=== PATIENT | female | born 1960 | race Caucasian/White ===

== ENCOUNTER 2020-06-20 07:22 | Outpatient (CLI) | payer OTHER, SELFPAY ==
--- NOTE | ~2020-06-20 | MM_ITS ---
EXAMINATION: MM screening mami BI w sg HISTORY: Screening TECHNIQUE: Craniocaudal and mediolateral oblique 3-D tomosynthesis images were obtained and synthetic 2-D images were generated. CAD analysis was submitted and interpreted. COMPARISON: Comparison to multiple prior studies sequentially, with oldest reviewed study dated 02/15. BREAST PARENCHYMAL COMPOSITION: The breasts are heterogeneously dense, which may obscure small masses . FINDINGS: There is no evidence of suspicious mass, calcification, or architectural distortion to sugg est malignancy in either breast. There has been no suspicious interval change. IMPRESSION: 1. No mammographic evidence of malignancy. 2. Recommend routine screening mammography in one year. BI-RADS Category 1: Negative Reviewed, dictated and finalized at location A.
== END 2020-06-20 07:23 | disposition home or self-care (01) ==
LOC: ANHIMG 07:25
PROVIDERS: PCP Internal Medicine; Visit Provider Obstetrics & Gynecology Gynecology
DX: Z12.31 Encounter for screening mammogram for malignant neoplasm of breast (principal)
CPT/HCPCS: 77063; 77067

== ENCOUNTER 2021-09-12 07:49 | Outpatient (CLI) | payer OTHER, SELFPAY ==
--- NOTE | ~2021-09-12 | MM_ITS ---
EXAMINATION: MM screening mami BI w sg HISTORY: Screening mammogram, family history of breast cancer in her mother. TECHNIQUE: Craniocaudal and mediolateral oblique 3-D tomosynthesis images were obtained and synthetic 2-D images were generated. CAD analysis was submitted and interpreted. COMPARISON: 06/20/2020, 02/19/2019, 02/04/2019 BREAST PARENCHYMAL COMPOSITION: The breasts are heterogeneously dense, which may obscure small masses . FINDINGS: There is no evidence of suspicious mass, calcification, or architectural distortion to sugg est malignancy in either breast. There has been no suspicious interval change. IMPRESSION: 1. No mammographic evidence of malignancy. 2. Recommend routine screening mammography in one year. BI-RADS Category 1: Negative Reviewed, dictated and finalized at location A. MIX OPERATOR
--- NOTE | ~2021-09-12 | DEXA_ITS ---
Bone Density Report Name: Ade Patrick Age: 61 Sex: Female Ethnicity: White Date of : 1960 Indication: osteopenia; monitoring treatment; postmenopausal Referring Provider: ANNMARIE RUIZ Study: Bone densitometry was performed. Exam Date: September 12, 2021 Accession number: [id number] Bone Density: Region BMD T-score Z-score Classification AP Spine (L1-L4) 0.778 -2.4 -0.8 Osteopenia Femoral Neck (Left) 0.625 -2.0 -0.6 Osteopenia Total Hip (Left) 0.760 -1.5 -0.4 Osteopenia Total Hip Bilateral Avg 0.755 -1.6 -0.4 Osteopenia Femoral Neck (Right) 0.579 -2.4 -1.0 Osteopenia Total Hip (Right) 0.750 -1.6 -0.4 Osteopenia World Health Organization criteria for BMD impression classify patients as: Normal (T-score at or above -1.0), Osteopenia (T-score between -1.0 and -2.5), or Osteoporosis (T-score at or below -2.5). 10-year Fracture Risk: FRAX not reported because: Treated for osteoporosis Previous Exams: Region Exam Age BMD T-score BMD Change BMD Change Date g/cm2 vs Baseline vs Previous AP Spine(L1-L4) 09/12/2021 61 0.778 -2.4 -0.048(-5.8%)# -0.029(-3.6%)* 02/04/2019 58 0.807 -2.2 -0.019(-2.3%)# 0.005(0.7%) 08/23/2016 56 0.802 -2.2 -0.024(-2.9%)# -0.011(-1.4%)# 02/15/2014 53 0.813 -2.1 -0.013(-1.6%) -0.013(-1.6%) 02/08/2012 51 0.826 -2.0 Total Hip(Left) 09/12/2021 61 0.760 -1.5 -0.064(-7.8%)# -0.033(-4.1%)* 02/04/2019 58 0.793 -1.2 -0.031(-3.8%)# 0.015(1.9%) 08/23/2016 56 0.778 -1.3 -0.046(-5.6%)# -0.033(-4.0%)# 02/15/2014 53 0.811 -1.1 -0.013(-1.6%) -0.013(-1.6%) 02/08/2012 51 0.824 -1.0 Total Hip(Right) 09/12/2021 61 0.750 -1.6 -0.031(-3.9%)# 0.008(1.1%) 02/04/2019 58 0.742 -1.6 -0.039(-5.0%)# -0.009(-1.2%) 08/23/2016 56 0.751 -1.6 -0.030(-3.8%)# -0.008(-1.1%)# 02/15/2014 53 0.760 -1.5 -0.021(-2.7%) -0.021(-2.7%) 02/08/2012 51 0.781 -1.3 *Denotes significance at 95% confidence level, LSC for AP Spine = 0.022 g/cm2, LSC for Total Hip = 0.027 g/cm2 Clinical Information Provided by Patient: Is being treated for osteoporosis Has used the following medications: Reclast (i.e. zoledronate), Vitamin D, Calcium Patient maximum height was 64 Menopause Age: 48 No regular weight bearing exercise Does not regularly consume dairy products Onset of menses at age 10 Number of children 2 Impression: The patient has low bone mass, based on the Total
== END 2021-09-12 07:50 | disposition home or self-care (01) ==
LOC: ANHIMG 07:51
PROVIDERS: PCP Internal Medicine; Visit Provider Obstetrics & Gynecology Gynecology
DX: Z12.31 Encounter for screening mammogram for malignant neoplasm of breast (principal); Z78.0 Asymptomatic menopausal state; M85.88 Other specified disorders of bone density and structure, other site; M85.852 Other specified disorders of bone density and structure, left thigh; M85.851 Other specified disorders of bone density and structure, right thigh
CPT/HCPCS: 77063; 77067; 77080

== ENCOUNTER 2022-11-01 08:36 | Outpatient (CLI) | payer OTHER, SELFPAY ==
--- NOTE | ~2022-11-01 | MM_ITS ---
EXAMINATION: MM screening mami BI w sg HISTORY: Screening TECHNIQUE: Craniocaudal and mediolateral oblique 3-D tomosynthesis images were obtained and synthetic 2-D images were generated. CAD analysis was submitted and interpreted. COMPARISON: Comparison to multiple prior studies sequentially, with oldest reviewed study dated 12/2015. BREAST PARENCHYMAL COMPOSITION: The breasts are heterogeneously dense, which may obscure small masses . FINDINGS: There is no evidence of suspicious mass, calcification, or architectural distortion to sugg est malignancy in either breast. There has been no suspicious interval change. IMPRESSION: 1. No mammographic evidence of malignancy. 2. Recommend routine screening mammography in one year. BI-RADS Category 1: Negative Reviewed, dictated and finalized at location A. TENANCE MANAGER
== END 2022-11-01 08:37 | disposition home or self-care (01) ==
PROVIDERS: PCP Internal Medicine; Visit Provider Obstetrics & Gynecology Gynecology
DX: Z12.31 Encounter for screening mammogram for malignant neoplasm of breast (principal)
CPT/HCPCS: 77063; 77067

== ENCOUNTER 2024-04-24 08:09 | Outpatient (CLI) | payer OTHER, SELFPAY ==
--- NOTE | ~2024-04-24 | MM_ITS ---
EXAMINATION: MM screening mami BI w sg HISTORY: Screening mammogram, family history of breast cancer in her mother. TECHNIQUE: Craniocaudal and mediolateral oblique 3-D tomosynthesis images were obtained and synthetic 2-D images were generated. CAD analysis was submitted and interpreted. COMPARISON: 11/01/2022, 09/12/2021, 06/20/2020 BREAST PARENCHYMAL COMPOSITION:Dense: The breasts are heterogeneously dense, which may obscure small masses. FINDINGS: No suspicious mass, calcification, or architectural distortion are identified in either lavon ast to suggest malignancy. There has been no suspicious interval change. IMPRESSION: No mammographic evidence of malignancy. Recommend routine screening mammography in one year. BI-RADS Category 1: Negative Reviewed, dictated and finalized at location .
--- NOTE | ~2024-04-24 | DEXA_ITS ---
Bone Density Report Name: BRITTANI GERBER Age: 64 Sex: Female Ethnicity: White Date of : 1960 Indication: osteopenia; monitoring treatment; height loss; Referring Provider: ANNMARIE RUIZ Study: Bone densitometry was performed. Exam Date: April 24, 2024 Accession number: [id number] Bone Density: Region BMD T-score Z-score Classification AP Spine(L1-L4) 0.799 -2.3 -0.4 Osteopenia Femoral Neck (Left) 0.636 -1.9 -0.4 Osteopenia Total Hip (Left) 0.797 -1.2 0.1 Osteopenia Femoral Neck (Right) 0.590 -2.3 -0.8 Osteopenia Total Hip (Right) 0.737 -1.7 -0.4 Osteopenia Total Hip Mean 0.767 -1.5 -0.2 Osteopenia World Health Organization criteria for BMD impression classify patients as: Normal (T-score at or above -1.0), Osteopenia (T-score between -1.0 and -2.5), or Osteoporosis (T-score at or below -2.5). 10-year Fracture Risk: FRAX not reported because: Treated for osteoporosis Previous Exams: Region Exam Age BMD T-score BMD Change BMD Change Date g/cm2 vs Baseline vs Previous AP Spine (L1-L4) 04/24/2024 64 0.799 -2.3 -0.015 (-1.8%) 0.020 (2.6%) 09/12/2021 61 0.778 -2.4 -0.035 (-4.3%) -0.029 (-3.6%) 02/04/2019 58 0.807 -2.2 -0.006 (-0.8%) 0.005 (0.7%) 08/23/2016 56 0.802 -2.2 -0.011 (-1.4%) -0.011 (-1.4%) 02/15/2014 53 0.813 -2.1 Total Hip(Left) 04/24/2024 64 0.797 -1.2 -0.014 (-1.8%) 0.037 (4.8%)* 09/12/2021 61 0.760 -1.5 -0.051 (-6.3%) -0.033 (-4.1%) 02/04/2019 58 0.793 -1.2 -0.018 (-2.2%) 0.015 (1.9%) 08/23/2016 56 0.778 -1.3 -0.033 (-4.0%) -0.033 (-4.0%) 02/15/2014 53 0.811 -1.1 Total Hip(Right) 04/24/2024 64 0.737 -1.7 -0.022 (-2.9%) -0.013 (-1.7%) 09/12/2021 61 0.750 -1.6 -0.009 (-1.2%) 0.008 (1.1%) 02/04/2019 58 0.742 -1.6 -0.018 (-2.3%) -0.009 (-1.2%) 08/23/2016 56 0.751 -1.6 -0.008 (-1.1%) -0.008 (-1.1%) 02/15/2014 53 0.760 -1.5 *Denotes significance at 95% confidence level, LSC for AP Spine = 0.022 g/cm2, LSC for Total Hip = 0.027 g/cm2 # Denotes dissimilar scan types or analysis methods Clinical Information Provided by Patient: Is being treated for osteoporosis Has used the following medications: Boniva (i.e. ibandronate), Vitamin D, Calcium Patient maximum height was 64 Menopause Age: 48 No regular weight bearing exercise Does not regularly consume dairy products Onset of menses at age 13 Number of children 2
== END 2024-04-24 08:10 | disposition home or self-care (01) ==
LOC: ANHIMG 08:15
PROVIDERS: PCP Physician Assistant Medical; Visit Provider Obstetrics & Gynecology Gynecology
DX: Z12.31 Encounter for screening mammogram for malignant neoplasm of breast (principal); M85.89 Other specified disorders of bone density and structure, multiple sites; Z78.0 Asymptomatic menopausal state
CPT/HCPCS: 77063; 77067; 77080

== ENCOUNTER 2024-05-04 12:17 | Outpatient (CLI) | payer OTHER, SELFPAY ==
--- NOTE | ~2024-05-04 | XR_ITS ---
XR abdomen/kub 1V Ordering provider: Quan Childress MD History: . LT URETERAL STONE . Comparison: None. FINDINGS: BOWEL: Nonobstructive bowel gas pattern. ORGANOMEGALY: None. SIGNIFICANT PATHOLOGIC CALCIFICATIONS: Calcific shadow seen in the left side of the pelvis which may be a stone or phlebolith. Follow-up advised. OTHER: No free air is seen under the diaphragm. Sclerotic areas in the left iliac bone. Follow-up advised. IMPRESSION: Calcific shadow seen in the left side of the pelvis which may be a stone or phlebolith. Follow-up adv ised. Reviewed, dictated and finalized at location A. IMPRESSION: Calcific shadow seen in the left side of the pelvis which may be a stone or phl ebolith. Follow-up advised.
== END 2024-05-04 12:18 | disposition home or self-care (01) ==
LOC: ANHIMG 12:20
PROVIDERS: PCP Physician Assistant Medical; Visit Provider Urology
DX: N20.1 Calculus of ureter (principal)
CPT/HCPCS: 74018

== ENCOUNTER 2024-05-07 01:41 | Day surgery (SDC) | payer OTHER, SELFPAY ==
--- NOTE | 2024-05-05 14:24 | PC.NURSE ---
Report to the Outpatient Waiting Room, entrance under the green pavilion located off [facility], at time __10:30 AM on date __05/07/24 . Planned Procedure Time: _12:30 PM . Time changes happen often and if your time is changed the preop area will call you the afternoon before. - You and your visitor will be asked to self-screen and do not enter if you have any COVID symptoms. - A mask is optional within the hospital at this time. Patients may have clear liquids (water, carbonated beverages, clear teas, apple juice) until 3 hours prior to surgery(9:30 AM) with a maximum of 20 ounces. - No food from midnight until time of surgery - Infants may have breast milk until 4 hours before surgery, infant formula 6 hours prior to surgery. - Children will be allowed to drink immediately following surgery. If applicable, please bring a bottle or sippy cup to assist with drinking. Juice, water, soda, and popsicles are readily available. For infants on formula, please bring formula the day of surgery. Pacifiers are allowed. Take the following medications with a SIP of water the morning of surgery: __HYDROCODONE IF NEEDED FOR PAIN. CIPRO DO NOT STOP ANY OF YOUR OTHER PRESCRIPTION MEDICATIONS PRIOR TO SURGERY ?EXCEPT THE FOLLOWING Medications to discontinue per physician __HOLD ALL VITAMINS 3 DAYS PRE OP.PT STATES LAST DOSE 2 WKS AGO Please no make-up, nail hungarian, hairspray, perfume, deodorant, or body powder the day of surgery. No jewelry (including any body piercings) or valuables the day of surgery, leave them at home. Please take a shower or bath the night before, or the morning of, surgery with an antibacterial soap. Wear comfortable, loose fitting clothing. Children are encouraged to wear pajamas. - Jewelry must be removed prior to entering the operating room. Rings and piercings that are not removed may be cut off. - The hospital will not accept responsibility for valuables. - Please leave all valuables, including medications, at home the day of surgery. If you are going home after surgery, a licensed coach tour driver must drive you home. - NO public transportation without another adult if you receive anesthesia. - We recommend that an adult stay with you for 24 hours following discharge. - We also recommend that you do not drive, make important decision, drink alcoholic beverages, or take any drugs that were not prescribed by your health care provider for at least 24 hours after your discharge time. Follow any additional instructions given to you from your surgeon. If you or anyone in your household have experienced Covid symptoms in the past week, please notify your surgeon or the nurse liaison at the phone number below for possible testing. Telephone instructions given to __PATIENT and asked if any additional questions and then verbalized understanding. Patient advised to call surgeon office or pre surgery nurse liaison [phone] if any additional questions.
[2024-05-05 14:29] VITALS: BMI 24.0
[2024-05-07] VITALS (8 sets, daily range): BP systolic 117–145; BP diastolic 65–77; PULSE 66–92; RESP 10–16; TEMP 36.6–36.9; O2SAT 98–100; BMI 23.1
--- NOTE | ~2024-05-07 | XR_ITS ---
EXAMINATION: XR stent kub - surgery DATE: 05/07/2024 12:27 INDICATION: Left internal ureteral stent placement TECHNIQUE: Fluoroscopic images from a left stent placement are submitted for review. 14 seconds of fl uoroscopy time. 4 fluoroscopic images FINDINGS: There is a left double-J internal ureteral stent projecting in expected position, with proximal [place] loop at the level of the renal pelvis and distal loop in the pelvis within the bladder lumen. IMPRESSION: 1. Left internal ureteral stent placement. Please refer to real-time procedural findings for detail s. Reviewed, dictated and finalized at location B. IMPRESSION: 1. Left internal ureteral stent placement. Please refer to real-time procedur al findings for details.
--- NOTE | 2024-05-07 06:31 | WPDHPUPDATE1 ---
History and Physical Update Update Date/Time: 05/07/24 06:31 History and Physical has been reviewed, including an updated exam of the patient. There are NO changes in the patient's condition. Risks, benefits, and alternatives have been discussed and questions answered. Patient agrees to proceed with procedure.
[2024-05-07] MEDS: LACTATED RINGERS 1,000 ML 30 ML IV CONT (11:15)
--- NOTE | 2024-05-07 11:24 | WPDANESEPPF ---
Anes - Initial Pre Proc Eval Procedure: Operation Date: 05/07/24 12:30 Proposed Procedures p Cystoscopy, Left Ureteroscopy, Possible Holmium Laser Lithotripsy, Left Stent Extraction, Left Stent Placement - Quan Childress MD Date/Time: 05/07/24 11:24 Surgeon: Quan Childress MD Pre Op Diagnosis: Lt Ureteral Stone Patient Data Age: 64 Gender: F Height: 1.63 m Weight: 63.6 kg Allergies Allergy/AdvReac Type Severity Reaction Status Date / Time No Known Allergies Allergy Unverified 05/05/24 14:13 Home Medications Medication Instructions Recorded Confirmed Type cholecalciferol (vitamin D3) 1,250 1,250 mcg PO WEEKLY 04/19/23 05/05/24 History mcg (50,000 unit) capsule hydrocodone 5 mg-acetaminophen 325 1 tablet PO Q8H PRN pain #30 tabs 05/01/24 05/05/24 Rx mg tablet ciprofloxacin HCl 500 mg tablet 500 mg PO Q12H KIDNEY INFECTION 05/05/24 05/05/24 History (Cipro) Patient hx anesthesia problems: other (Pt reports that 40 years ago she woke up w ETT still in her mouth on emergence.) Family hx anesthesia problems: none Results Review: All pre-operative results and documents have been reviewed as part of the pre-operative evaluation. [facility] Past Medical History Medical History Hyperlipidemia Kidney stone Osteoporosis UTI (urinary tract infection) Surgical History Surgical History H/O colonoscopy H/O oophorectomy History of appendectomy Hx of tubal ligation Family History Family History Mother Non Hodgkin's lymphoma Social History Social History Smoking status: Never smoker Second hand tobacco smoke exposure: Yes Alcohol intake: current Alcohol use details: rare, yearly Substance use: never Substance use type: does not use Lack of Transportation: No Lack of Food: Never True Current Housing: I Have Housing Concerned About Future Housing: No Difficulty Paying Gas/Electric Bills: No Difficulty Paying for Meds: No Currently Unemployed: No Education: High School Diploma/GED Difficulty w/ Childcare or Family Care: No Living arrangements: with family Additional living arrangements comments: spouse Occupation/Education: retired Gender identity (if verbalized by the patient): Female Sexual Orientation (if Verbalized by the Patient): Straight or Heterosexual Spiritual care concerns: No Anes - Eval Final PreProcedure Day of Procedure 05/07/24 11:24 Patient weight: normal Heart: regular rate and rhythm Lungs: clear to auscultation Airway: Mallampati scale class II Neurological: alert and oriented Last oral intake: >/= 8 hours ASA classification: II Emergent: no Anesthetic plan: proceed Anesthesia type and monitoring: general LMA and standard monitoring Results Review: All pre-operative results and documents have been reviewed as part of the pre-operative evaluation. Hyperlipidemia, diet controlled. Informed Consent: The patient's anesthetic plan and its attendant risks and benefits were discussed with the patient/family/POA. Questions were solicited and answers provided to the satisfaction of the patient/family/POA.
[2024-05-07] MEDS: ceFAZolin 2 GM/D5W 50 ML 2 GM/50 ML BAG IVPB (11:47)
[2024-05-07] MEDS: LIDOCAINE HCL 2% GEL UROJET 10 ML PKG MUCOUS MEM (11:56)
[2024-05-07] MEDS: KETOROLAC 15 MG/ML VIAL (*BKC) IV PUSH (12:19)
--- NOTE | 2024-05-07 12:29 | P.OP_ITS ---
Procedure Note - Detailed Date of Procedure 05/07/24 Pre-op Diagnosis Lt Ureteral Stone Post-op Diagnosis Same Procedure Performed Cystoscopy, left ureteroscopy with laser lithotripsy stone extraction, stent placement Surgeon Quan Childress MD Anesthesia General Description of Procedure The patient was brought to the operative suite where she is prepped and draped in a routine sterile fashion while in the dorsal lithotomy position after the uneventful induction of a general LMA anesthetic. A 19F rigid cystoscope was placed in the bladder. The patient had no evidence of urethral stricture or bladder neck contracture. The bladder mucosa was endoscopically normal without hyperemia or neoplasm. There was a single, orthotopic ureteral orifice bilaterally. A 0.035 glidewire was advanced into the left renal pelvis under fluoroscopy. The distal ureter was dilated with an 8F/10F ureteral dilator. Ureteroscopy was undertaken with a short tapered semi-rigid ureteroscope. She has a 6mm stone which was impacted 2cm above the ureteral orifice. I used a 200 micron [employer] laser fiber to fracture at/ dusted into multiple small pieces, all of which were removed with a 1 point F disposable escape stone basket. Due to the extent of this manipulation I did place a 4.8F double-J ureteral stent. I performed a retrograde pyelogram through the ureteral scope to ensure appropriate placement of the stent. The proximal coil of the stent was confirmed to be in the renal pelvis and the distal coil in the bladder. The patient's bladder was emptied and she was taken to the recovery room having tolerated this procedure well. Drains Yes Packing Yes Pathology Yes Complications No immediate complications Condition Stable
== END 2024-05-07 13:53 | disposition home or self-care (01) ==
PROVIDERS: PCP Physician Assistant Medical; Visit Provider Urology
PROC: (CPT 52352; principal; 2024-05-07 12:30)
DX: N20.1 Calculus of ureter (principal)
CPT/HCPCS: 52356; 82365; 88300; C1769; C2617; J0690; J1885; J2371; J2405; J2704; J3010; J7120

== ENCOUNTER 2024-12-14 08:02 | Outpatient (CLI) | payer OTHER, SELFPAY ==
--- NOTE | ~2024-12-14 | XR_ITS ---
Exam: Abdomen 1V HISTORY: Lt ureteral stone, follow-up COMPARISON: 05/04/2024 TECHNIQUE: Supine images of the abdomen FINDINGS: Bowel gas pattern is non-obstructive. There is no free air or deep sulci. Redemonstration of a well-circumscribed 3 mm calcific density in the left hemipelvis, unchanged from prior. Lung bases are unremarkable. Bones and soft tissues are unremarkable. IMPRESSION: Nonspecific, nonobstructive bowel gas pattern. 3 mm calcific density within the left hemipelvis, unchanged from prior. Reviewed, dictated and finalized at location A. NICAL SOLUTIONS DIRECTOR
--- OUTSIDE RECORDS SUMMARY | 2024-12-14 08:17 | XMS_ITS | Clinical Summary ---
Author Organization [facility] Address [address] [place] [address] Care Team Providers Care Home Specialist Name Role Phone Brown Holden MD Primary Care Provider [phone] Source Comments [facility],non-owned Affiliates and Associated Physician Practices is amultiple site organization consisting of ambulatory clinics and hospital sitesin [place], [place], [place] and [place]. This disclosure is being madepursuant to the Care Everywhere program and may not contain all information available regarding this patient. Last updated 18.[facility] Allergies No known active allergies Medications * Be aware that medications may not be up to date on this document. Alwaysverify current medications with the patient. Medication Sig Dispensed Refills Start Date End Date Status diazePAM (VALIUM) 2 MG tablet Take 1 tablet by mouth 3 times daily as needed (back spasm) 10 tablet 08/07/2019 Active ibuprofen (MOTRIN) 200 MG tablet Take 2 tablets by mouth every 6 hours as needed for Pain 08/07/2019 Active oxyCODONE-acetaminoph en (PERCOCET) 5-325 MG tablet Take 1 tablet by mouth every 4 hours as needed for Pain 12 tablet 08/07/2019 Active artificial tears ophthalmic ointment Instill into left eye 4 times daily - before meals & nightly 1 g 08/07/2019 Active Social History Tobacco Use Types Packs/Day Years Used Date Smoking Tobacco: Never Assessed Sex and Gender Information Value Date Recorded Sex Assigned at Not on file Gender Identity Not on file Sexual Orientation Not on file Last Filed Vital Signs Vital Sign Reading Time Taken Comments Blood Pressure 163/80 08/07/2019 1:00 AM CDT Pulse 74 08/07/2019 1:00 AM CDT Temperature 36.1 C (97 F) 08/06/2019 3:57 PM CDT Respiratory Rate 11 08/07/2019 1:00 AM CDT Oxygen Saturation 100% 08/07/2019 1:00 AM CDT Inhaled Oxygen Concentration - - Weight 63.5 kg (140 lb) 08/06/2019 8:05 PM CDT Height 162.6 cm (5' 4 ) 08/06/2019 8:05 PM CDT Body Mass Index 24.03 08/06/2019 8:05 PM CDT Plan of Treatment Health Maintenance Due Date Last Done Comments BONE DENSITY TESTING 1960 COLOGUARD (AGES 45-75) - COL ON CA SCREENING 1960 COLON MONITORING 1960 COLONOSCOPY - COLON CA SCREENING 1960 CT COLONOGRAPHY - COLON CA SCREENING 1960 Colorectal Cancer Screening 1960 FIT - COLON CA SCREENING 1960 FLEX SIG - COLON CA SCREENING 1960 LIPID TESTING 1960 MAMMOGRAM 1960 HEPATITIS C SCREENING 02/17/1976 DTAP/TDAP/TD VACCINES (1 - Tdap) 1977 PNEUMOCOCCAL VACCINE 50+ (1 of 1 - PCV) 02/22/2008 ZOSTER VACCINE (1 of 2) 02/22/2008 COVID-19 VACCINE (1 - 2023-2 5 season) 2024 INFLUENZA VACCINE (#1) 2024 DEPRESSION SCREENING 10/21/2024 MEDICARE AWV CALENDAR YEAR 2024 Respiratory Syncytial Virus (RSV) Vaccine Pt: or over 60 yrs (1 - 1-dose 75+ series) 2033 HEPATITIS B VACCINE Aged Out No longe r eligible based on patient's age to complete this topic HIB VACCINE Aged Out No longer eligi ble based on patient's age to complete this topic HPV VACCINE Aged Out No longer eligi ble based on patient's age to complete this topic MENINGOCOCCAL (Group B) VACCINE Aged Out No longer eligible based on patient's age to complete this topic MENINGOCOCCAL VACCINE Aged Out No faby georgi eligible based on patient's age to complete this topic Care Teams Home Specialist Relationship Specialty Start Date End Date Brown Holden MD [facility] [place], [place] [id number] PCP - General Internal Medicine 08/06/19
--- OUTSIDE RECORDS SUMMARY | 2024-12-14 08:17 | XMS_ITS | Patient Health Summary ---
Author Organization [facility] Address [address] [place] [address] Care Team Providers Care Asphalt Worker Name Role Phone Brown Holden MD Primary Care Provider [phone] Note from [facility],non-owned Affiliates and Associated Physician Practices is amultiple site organization consisting of ambulatory clinics and hospital sitesin [place], [place], [place] and [place]. This disclosure is being madepursuant to the Care Everywhere program and may not contain all information available regarding this patient. Last updated 18.[facility] Allergies No known active allergies Medications * Be aware that medications may not be up to date on this document. Alwaysverify current medications with the patient. * diazePAM (VALIUM) 2 MG tablet(Started 08/07/2019) Take 1 tablet by mouth 3 times daily as needed (back spasm) * ibuprofen (MOTRIN) 200 MG tablet(Started 08/07/2019) Take 2 tablets by mouth every 6 hours as needed for Pain * oxyCODONE-acetaminophen (PERCOCET) 5-325 MG tablet(Started 08/07/2019) Take 1 tablet by mouth every 4 hours as needed for Pain * artificial tears ophthalmic ointment(Started 08/07/2019) Instill into left eye 4 times daily - before meals & nightly Social History Tobacco Use Types Packs/Day Years [...] Mass Index 24.03 08/06/2019 8:05 PM CDT Procedures * CARDIAC EKG ORDER(Performed 09/07/2019) * CARDIAC EKG ORDER(Performed 08/07/2019) * TROPONIN I(Performed 08/06/2019) * MRI BRAIN WO CONTRAST(Performed 08/06/2019) Performed for Facial droop * TROPONIN I(Performed 08/06/2019) * TROPONIN I(Performed 08/06/2019) * PT-INR [facility](Performed 08/06/2019) * COMPREHENSIVE METABOLIC PANEL(Performed 08/06/2019) * CBC W AUTO DIFFERENTIAL(Performed 08/06/2019) * EKG 12-LEAD(Performed 08/06/2019) Performed for Cerebrovascular accident (CVA), unspecified mechanism (HCC) * TYPE + SCREEN PANEL(Performed 08/06/2019) * CT ANGIO BRAIN NECK STROKE(Performed 08/06/2019) Performed for Cerebrovascular accident (CVA), unspecified mechanism (HCC) * CREATININE BLOOD - POCT (IP) [facility](Performed 08/06/2019) Performed for Cerebrovascular accident (CVA), unspecified mechanism (HCC) * CT BRAIN STROKE(Performed 08/06/2019) Performed for Cerebrovascular accident (CVA), unspecified mechanism (HCC) Results * CARDIAC EKG ORDER (09/07/2019 3:29 PM GENETIC ENGINEER) Only the most recent of2 resultswithin the time period is included. Narrative 09/07/2019 3:29 PM GENETIC ENGINEER Ordered by an unspecified provider. Scanned Document CARDIAC SERVICES ORD ERABLES * TROPONIN I (08/06/2019 10:33 PM CDT) Only the most recent of3 resultswithin the time period is included. Troponin I <0.010 <0.032 ng/mL 08/06/2019 10:58 PM CDT [facility] Blood BLOOD SPECIMEN / Unknown Venipuncture / Unknown 08/06/2019 10:33 PM CDT 08/06/2019 10:36 PM CDT Arsalan Nash MD LAB - CHEMISTRY [facility] [address] [phone] * MRI BRAIN WO CONTRAST (08/06/2019 8:48 PM CDT) Anatomical Region Laterality Modality Head Magnetic Resonan ce 08/07/2019 6:58 AM CDT Impressions 08/07/2019 2:05 PM CDT IMPRESSION: 1. No acute intracranial processes. Specifically, no evidence of acute cerebral infarction. I, Dr. JEFFERSON NAVARRETE have personally reviewed and interpreted this examination/study. This report was electronically signed by JEFFERSON NAVARRETE on 08/07/2019 2:05 PM . Narrative 08/07/2019 2:05 PM CDT EXAMINATION: Magnetic resonance imaging (MRI) of the brain without contrast HISTORY: Facial droop TECHNIQUE: MRI of the brain was performed without contrast according to standard protocol. COMPARISON: Comparison is made with CT of the head and CT angiogram of the abdomen and performed earlier the same day. FINDINGS: No evidence of acute or chronic hemorrhage is identified. No evidence of acute cerebral infarction or encephalomalacia is seen. The ventricles are nondilated. Cavum septum pellucidum is incidentally noted. No mass, edema, mass effect or midline shift is seen. Periventricular white matter FLAIR hyperintensities represent senescent changes. No suspicious white matter changes are evident. The corpus callosum and sella appear normal. The posterior fossa, brainstem, and craniocervical junction appear normal. Other than bilateral cataract extractions, the orbits and intraorbital structures appear normal. The visible portions of the paranasal sinuses and mastoid air cells appear clear and well aerated. Normal flow voids are demonstrated in the carotid arteries and basilar artery. The calvarium and visualized cervical spine appear normal. Procedure Note Jefferson Navarrete MD - 08/07/2019 EXAMINATION: Magnetic resonance imaging (MRI) of the brain withoutcontrast HISTORY: Facial droop TECHNIQUE: MRI of the brain was performed without contrast according to standard protocol. COMPARISON: Comparison is made with CT of the head and CT angiogram ofthe abdomen and performed earlier the same day. FINDINGS: No evidence of acute or chronic hemorrhage is identified. No evidence of acute cerebral infarction or encephalomalacia is seen. The ventriclesare nondilated. Cavum septum pellucidum is incidentally noted. No mass,edema, mass effect or midline shift is seen. Periventricular white matter FLAIR hyperintensities represent senescent changes. No suspicious white matter changes are evident. The corpus callosum and sella appear normal. The posterior fossa, brainstem, and craniocervical junction appear normal. Other than bilateral cataract extractions, the orbits and intraorbital structures appear normal. The visible portions of the paranasal sinuses and mastoid air cells appear clear and well aerated. Normal flow voidsare demonstrated in the carotid arteries and basilar artery. The calvariumand visualized cervical spine appear normal. IMPRESSION: 1. No acute intracranial processes. Specifically, no evidence of acute cerebral infarction. I, Dr. JEFFERSON NAVARRETE have personally reviewed and interpreted this examination/study. This report was electronically signed by JEFFERSON NAVARRETE on 08/07/20192:05 PM . Helena Murray MD MR ORDERABLES * PT-INR [facility] (08/06/2019 3:42 PM CDT) PT 12.4 12.1 - 14.8 Seconds 08/06/2019 4:04 PM CDT [facility] INR 1.0 See Comment 08/06/2019 4:04 PM CDT [facility] Comment: The suggested therapeutic range for standard coumadin (warfarin) therapy is an INR of 2.0-3.0. For high-risk patients (Mechanical Mitral Valve Prosthesis, etc.), the suggested prophylactic therapeutic range is an INR of 2.5-3.5. Blood BLOOD SPECIMEN / Unknown Venipuncture / Unknown 08/06/2019 3:42 PM CDT 08/06/2019 3:48 PM CDT Arsalan Nash MD LAB - COAGULATION OR DERABLES [facility] [address] [phone] * (ABNORMAL) CBC W AUTO DIFFERENTIAL (08/06/2019 3:42 PM CDT) WBC 13.4(H) 3.5 - 10.5 10 3/uL 08/06/2019 3:52 PM T [facility] RBC 4.82 3.90 - 5.00 10 6/uL 08/06/2019 3:52 PM [facility] Hemoglobin 13.9 12.0 - 15.5 g/dL 08/06/2019 3:52 PM [facility] Hematocrit 42.6 35.0 - 45.0 % 08/06/2019 3:52 PM [facility] MCV 88.4 81.0 - 97.0 fL 08/06/2019 3:52 PM [facility] MCH 28.8 28.0 - 34.0 pg 08/06/2019 3:52 PM [facility] MCHC 32.6 32.0 - 36.0 g/dL 08/06/2019 3:52 PM [facility] Platelet Count 497(H) 150 - 400 10 3/uL 08/06/2019 3:52 PM [facility] RDW-SD 45.1 36.0 - 50.0 fL 08/06/2019 3:52 PM [facility] RDW-CV 14.0 11.2 - 14.8 % 08/06/2019 3:52 PM [facility] MPV 9.5 9.3 - 12.8 fL 08/06/2019 3:52 PM [facility] nRBC Absolute 0.00 0 10 3/uL 08/06/2019 3:52 PM [facility] nRBC Auto 0.0 0 /100 WBC 08/06/2019 3:52 PM [facility] Neutrophils % 77.2(H) 35.0 - 70.0 % 08/06/2019 3:52 PM [facility] Lymphocytes % 11.6(L) 19.7 - 55.1 % 08/06/2019 3:52 PM CDT [facility] Monocytes % 10.4 3.0 - 15.0 % 08/06/2019 3:52 PM CDT [facility] Eosinophils % 0.1 0.0 - 6.0 % 08/06/2019 3:52 PM CDT [facility] Basophil % 0.3 0.0 - 1.5 % 08/06/2019 3:52 PM T [facility] Neutrophils Absolute 10.4(H) 1.6 - 7.0 10 3/uL 08/06/2019 3:52 PM CDT [facility] Lymphocyte Absolute 1.6 0.8 - 2.9 10 3/uL 08/06/2019 3:52 PM T [facility] Monocytes Absolute 1.40(H) 0.14 - 0.66 10 3/uL 08/06/2019 3:52 PM CDT [facility] Eosinophils Absolute 0.02 0.00 - 0.45 10 3/uL 08/06/2019 3:52 PM T [facility] Basophils Absolute 0.04 0.00 - 0.06 10 3/uL 08/06/2019 3:52 PM T [facility] Immature Granulocytes % 0.4 0.0 - 1.0 % 08/06/2019 3:52 PM [facility] Blood BLOOD SPECIMEN / Unknown Venipuncture / Unknown 08/06/2019 3:42 PM CDT 08/06/2019 3:48 PM CDT Arsalan Nash MD LAB - HEMATOLOGY ORD ERABLES [address] [phone] * (ABNORMAL) COMPREHENSIVE METABOLIC PANEL (08/06/2019 3:42 PM CDT) BUN 17 7 - 26 mg/dL 08/06/2019 4:10 PM T [facility] Creatinine 0.7 0.6 - 1.2 mg/dL 08/06/2019 4:10 PM T [facility] Sodium 142 136 - 145 mmol/L 08/06/2019 4:10 PM [facility] Potassium 3.4(L) 3.5 - 4.5 mmol/L 08/06/2019 4:10 PM [facility] Chloride 103 98 - 107 mmol/L 08/06/2019 4:10 PM [facility] CO2 20(L) 22 - 29 mmol/L 08/06/2019 4:10 PM [facility] Glucose 102 70 - 115 mg/dL 08/06/2019 4:10 PM [facility] Calcium 10.1 8.4 - 10.2 mg/dL 08/06/2019 4:10 PM [facility] Protein Total 8.2 6.0 - 8.3 g/dL 08/06/2019 4:10 PM [facility] Albumin 4.1 3.4 - 5.0 g/dL 08/06/2019 4:10 PM [facility] Bilirubin Total 0.7 0.2 - 1.2 mg/dL 08/06/2019 4:10 PM [facility] Alkaline Phosphatase 90 40 - 150 Units/L 08/06/2019 4:10 PM [facility] ALT 18 0 - 55 Units/L 08/06/2019 4:10 PM [facility] AST 11 5 - 34 Units/L 08/06/2019 4:10 PM [facility] Anion Gap 22(H) 8 - 18 08/06/2019 4:10 PM [facility] BUN/Creatinine Ratio 24(H) 7 - 23 08/06/2019 4:10 PM [facility] Osmolality Calculated 296 270 - 300 mOsm/kg 08/06/2019 4:10 PM [facility] Albumin/Globulin Ratio 1.0(L) 1.1 - 2.3 08/06/2019 4:10 PM [facility] eGFR >60 >60 mL/min/1.7 3 m2 08/06/2019 4:10 PM [facility] Blood BLOOD SPECIMEN / Unknown Venipuncture / Unknown 08/06/2019 3:42 PM CDT 08/06/2019 3:48 PM CDT Arsalan Nash MD LAB - CHEMISTRY [facility]DR[facility] [address] [phone] * EKG 12-LEAD (08/06/2019 3:41 PM CDT) Ventricular Rate 88 BPM [facility] Atrial Rate 88 BPM [facility] P-R Interval 122 ms [facility] QRS Duration ms 92 ms [facility] Q-T Interval ms 372 ms [facility] QTC Calculation (Bezet) 450 ms [facility] Calculated P [place] 64 degrees [facility] Calculated R [place] 28 degrees [facility] Calculated T [place] 14 degrees [facility] Interpretation EKG NORMAL SINUS RHYTHM NONSPECIFIC ST ABNORMALITY ABNORMAL ECG NO PREVIOUS ECGS AVAILABLE Confirmed by Nikunj Liu ([id number]), purchasing expeditor Brayan Prajapati ([id number]) on 09/02/2019 8:56:09 PM [facility] 08/06/2019 3:41 PM CDT 09/02/2019 8:56 PM GENETIC ENGINEER Arsalan Nash MD ECG ORDERABLES Performing Organization Address [facility] de Phone Number [facility] * TYPE + SCREEN PANEL (08/06/2019 3:40 PM CDT) [facility] Antibody Screen NEG 9 4:41 PM CDT [facility] ABO Rh A POS 08/06/2019 4:41 PM CDT [facility] Blood Bank BLOOD SPECIMEN / Unknown Venipuncture / Unknown 08/06/2019 3:40 PM CDT 08/06/2019 4:00 PM CDT Arsalan Nash MD LAB - BLOOD BANK ORD ERABLES Performing Organization Address [facility] Co de Phone Number [facility] [address] * CT ANGIO BRAIN NECK STROKE (08/06/2019 3:31 PM CDT) Anatomical Region Laterality Modality Head Computed Tomogra phy 08/06/2019 3:40 PM CDT Impressions 08/06/2019 4:31 PM CDT IMPRESSION: 1. No large arterial occlusions or significant stenoses identified in the head or neck. Preliminary results were discussed with Dr. Swanson by Dr. Ashford on 08/06/2019 at 1534 hours. I, Dr. JEFFERSON NAVARRETE have personally reviewed and interpreted this examination/study. This report was electronically signed by JEFFERSON NAVARRETE on 08/06/2019 4:31 PM . Narrative 08/06/2019 4:31 PM CDT EXAMINATION: 1. CT ANGIOGRAPHY OF THE HEAD AND NECK WITH CONTRAST HISTORY: Left facial droop TECHNIQUE: CT angiography of the head and neck was obtained after the uneventful administration of 100 mL Isovue-370 intravenous contrast. Coronal and sagittal multiplanar reconstruction of the head and neck were performed by the technologist. NASCET criteria was utilized for evaluation of carotid stenosis. NON-ANGIOGRAPHIC FINDINGS: No abnormal enhancing lesions or interval changes since the nonenhanced CT head examination are identified. No soft tissue abnormalities are identified in the neck. The cervical spine is unremarkable. ANGIOGRAPHIC FINDINGS: The visible aortic arch appears normal. The configuration of the brachiocephalic vessels is typical. The innominate artery and both subclavian arteries appear normal. The right common and internal carotid arteries as well as the right carotid bifurcation appear normal. The left common and internal carotid arteries as well as the left carotid bifurcation appear normal. Left vertebral artery is dominant. Bilateral cervical vertebral arteries appear normal. The distal internal carotid arteries appear normal. The anterior and middle cerebral arteries appear normal. The distal vertebral arteries appear normal. The basilar artery and posterior cerebral arteries appear normal. No aneurysms, vascular occlusions, or intracranial stenoses are identified. Procedure Note Jefferson Navarrete MD - 08/06/2019 EXAMINATION: 1. CT ANGIOGRAPHY OF THE HEAD AND NECK WITH CONTRAST HISTORY: Left facial droop TECHNIQUE: CT angiography of the head and neck was obtained after the uneventful administration of 100 mL Isovue-370 intravenous contrast. Coronal and sagittal multiplanar reconstruction of the head and neckwere performed by the technologist. NASCET criteria was utilized forevaluation of carotid stenosis. NON-ANGIOGRAPHIC FINDINGS: No abnormal enhancing lesions or interval changes since the nonenhancedCT head examination are identified. No soft tissue abnormalities are identified in the neck. The cervical spine is unremarkable. ANGIOGRAPHIC FINDINGS: The visible aortic arch appears normal. The configuration of the brachiocephalic vessels is typical. The innominate artery and both subclavian arteries appear normal. The right common and internal carotid arteries as well as the right carotid bifurcation appear normal. Theleft common and internal carotid arteries as well as the left carotid bifurcation appear normal. Left vertebral artery is dominant. Bilateral cervical vertebral arteries appear normal. The distal internal carotid arteries appear normal. The anterior and middle cerebral arteries appear normal. The distal vertebral arteries appear normal. The basilar artery and posterior cerebral arteries appear normal. No aneurysms, vascular occlusions, or intracranial stenoses are identified. IMPRESSION: 1. No large arterial occlusions or significant stenoses identified inthe head or neck. Preliminary results were discussed with Dr. Swanson by Dr. Ashford on 08/06/2019 at 1534 hours. I, Dr. JEFFERSON NAVARRETE have personally reviewed and interpreted this examination/study. This report was electronically signed by JEFFERSON NAVARRETE on 08/06/20194:31 PM . Jamie Swain MD CT ORDERABLES * CREATININE BLOOD - POCT (IP) [facility] (08/06/2019 3:13 PM CDT) Creatinine POCT 0.89 0.3 - 1.3 mg/dL [facility] POCT TESTING eGFR POCT 60 60 ml/min [facility] Blood BLOOD SPECIMEN / Unknown 08/06/2019 3:13 PM CDT Esperanza Elizondo MD LAB - POINT OF CARE ORDERABLES [facility] POCT TESTING [address] [place] [address] * CT BRAIN STROKE (08/06/2019 3:09 PM CDT) Anatomical Region Laterality Modality Head Computed Tomogra phy 08/06/2019 3:25 PM CDT Impressions 08/06/2019 3:45 PM CDT IMPRESSION: 1. No acute intracranial hemorrhage. The preliminary results were released by Dr. Ashford on 08/06/2019 at 3:11 PM. I, Dr. JEFFERSON NAVARRETE have personally reviewed and interpreted this examination/study. This report was electronically signed by JEFFERSON NAVARRETE on 08/06/2019 3:45 PM . Narrative 08/06/2019 3:45 PM CDT EXAMINATION: Computed tomography (CT) of the head without contrast HISTORY: Stroke TECHNIQUE: CT of the head was performed without contrast according to standard protocol. COMPARISON: No prior FINDINGS: No acute intra- or extra-axial hemorrhage is identified. The brain volume is normal. The ventricles are of normal size, shape, and morphology. The basal cisterns are patent. No edema, mass effect or midline shift is seen. The jeffery-white matter differentiation is normal. No significant white matter abnormality is identified. Other than bilateral cataract extractions, the visualized portions of the orbits, paranasal sinuses, and mastoids appear normal. No acute fracture is identified. Procedure Note Jefferson Navarrete MD - 08/06/2019 EXAMINATION: Computed tomography (CT) of the head without contrast HISTORY: Stroke TECHNIQUE: CT of the head was performed without contrast according to standard protocol. COMPARISON: No prior FINDINGS: No acute intra- or extra-axial hemorrhage is identified. The brainvolume is normal. The ventricles are of normal size, shape, and morphology. The basal cisterns are patent. No edema, mass effect or midline shift isseen. The jeffery-white matter differentiation is normal. No significant white matter abnormality is identified. Other than bilateral cataract extractions, the visualized portions of the orbits, paranasal sinuses,and mastoids appear normal. No acute fracture is identified. IMPRESSION: 1. No acute intracranial hemorrhage. The preliminary results were released by Dr. Ashford on 08/06/2019 at3:11 PM. I, Dr. JEFFERSON NAVARRETE have personally reviewed and interpreted this examination/study. This report was electronically signed by JEFFERSON NAVARRETE on 08/06/20193:45 PM . Jamie Swain MD CT ORDERABLES Care Teams Asphalt Worker Relationship Specialty Start Date End Date Brown Holden MD [address] [place] [id number] PCP - General Internal Medicine 08/06/19
--- OUTSIDE RECORDS SUMMARY | 2024-12-14 08:17 | XMS_ITS | Clinical Summary ---
Author Organization [facility] Address [address] [place] [address] Care Team Providers Care Test Case Developer Name Role Phone Malvin Arechiga MD Primary Care Provider [phone] Allergies No known active allergies Medications calcium carbonate (TUMS) 500 MG chewable tablet Chew 1 tablet (500 mg total) by mouth daily as needed for Heartburn. Active vitamin D2, ergocalciferol, (DRISDOL) 1.25 mg capsuleIndications :Vitamin D deficiency Take 1 capsule (1.25 mg total) by mouth once a week. 12 capsule 3 4 Active risedronate (ACTONEL) 150 MG tablet Take 1 tablet (150 mg total) by mouth every 30 (thirty) days. with water on empty stomach, nothing by mouth or lie down for next 30 minutes. Active cyclobenzaprine (FLEXERIL) 10 MG tabletIndications: Muscle spasm Take 1 tablet (10 mg total) by mouth nightly as needed for Muscle Spasms. 90 tablet 5 Active rosuvastatin (CRESTOR) 5 MG tabletIndications: Mixed hyperlipidemia Take 1 tablet (5 mg total) by mouth nightly at bedtime. 90 tablet 3 5 Active cyclobenzaprine (FLEXERIL) 5 MG tabletIndications: Muscle spasm Take 1 tablet (5 mg total) by mouth nightly as needed for Muscle Spasms. 30 tablet 2 4 11/24/19 25 Discontin ued(Reord er) rosuvastatin (CRESTOR) 5 MG tabletIndications: Mixed hyperlipidemia Take 1 tablet (5 mg total) by mouth nightly at bedtime. 90 tablet 3 4 11/24/19 25 Discontin ued(Reord er) Active Problems Problem Noted Date Diagnosed Date Mixed hyperlipidemia 08/20/2024 Encounters Date Type Department Care Team Description 11/24/2024 8:20 AM KNOCKOUT MACHINE OPERATOR Office Visit [facility] Medical [facility] - [place] [address] [place] [address] Malvin Arechiga MD Follow Up; Hyperlipidemia; Blood Pressure 11/24/2024 Orders Only [facility] Medical [facility] - [place] [address] [place] [address] Malvin Arechiga MD 11/24/2024 Travel from Last 3 Months Immunizations Name Administration Dates Next Due Fluzone High Dose (IIV, trivalent, 0.5mL) 2023 Influenza Adult (Generic) 08/01/2020 Pneumococcal (Prevnar 20) 08/05/2024 Shingrix 10/10/2024,08/05/2024 Tdap (Generic) 09/09/2018 Family History Medical History Relation Comments Cancer Mother Non-Hodgkins lym phoma Relation Status Comments Mother Social History Tobacco Use Types Packs/Day Years Used Date Smoking Tobacco: Never Smokeless Tobacco: Never Tobacco Cessation:Counseling Given: Yes Comments:Counseled by Dr. Arechiga. Alcohol Use Standard Drinks/Week Comments Not Currently 0 (1 standard drink = 0.6 oz pur e alcohol) PHQ-2 Answer Date Recorded Patient Health Questionnaire-2 Score 0 08/19/2024 Comments No Sex and Gender Information Value Date Recorded Sex Assigned at Female 11/24/2024 8:21 AM KNOCKOUT MACHINE OPERATOR Legal Sex Female 7:26 PM CDT Gender Identity Female 11/24/2024 8:21 AM KNOCKOUT MACHINE OPERATOR Sexual Orientation Straight 11/24/2024 8: 21 AM KNOCKOUT MACHINE OPERATOR Last Filed Vital Signs Vital Sign Reading Time Taken Comments Blood Pressure 152/86 11/24/2024 8:39 AM KNOCKOUT MACHINE OPERATOR Pulse 79 11/24/2024 8:22 AM KNOCKOUT MACHINE OPERATOR Temperature 36.1 C (96.9 F) 11/24/2024 8:22 AM KNOCKOUT MACHINE OPERATOR Respiratory Rate 16 11/24/2024 8:22 AM KNOCKOUT MACHINE OPERATOR Oxygen Saturation 98% 11/24/2024 8:22 AM KNOCKOUT MACHINE OPERATOR Inhaled Oxygen Concentration - - Weight 63.2 kg (139 lb 6.4 oz) 11/24/2024 8:22 A M KNOCKOUT MACHINE OPERATOR Height 162.6 cm (5' 4 ) 11/24/2024 8:22 AM KNOCKOUT MACHINE OPERATOR Body Mass Index 23.93 11/24/2024 8:22 AM KNOCKOUT MACHINE OPERATOR Plan of Treatment Upcoming Encounters Date Type Department Care Team (Late st Contact Info) Description 01/08/2025 7:40 AM CDT Allied Health/Nurse Visit [facility] Medical [facility] - [address] [place] [address] 04/28/2025 7:00 AM CDT [facility] [address] [place] [address] Malvin Arechiga MD [facility] [address] Health Maintenance Due Date Last Done Comments Colorectal Cancer Screening Colonoscopy (10 Years) 1960 Annual Medicare Wellness Visit 2023 COVID-19 Vaccine ( - 2023-2 5 season) 2024 PHQ-2 (Physician [place]) 10/21/2024 08/19/2024 Mammogram Screening 04/24/2026 04/24/2024 DTaP, Tdap and Td Vaccines ( 2 - Td or Tdap) 09/09/2028 09/09/2018 RSV Immunization or 60+ Years (1 - 1-dose 75+ series) 2033 Dexa Scan (General) Completed 04/24/2024 Pneumococcal Vaccine: 65+ Years Completed 08/05/2024 Hepatitis C Completed 08/19/2024 Influenza Adult Completed 08/19/2024, 08/01/2020 Zoster Vaccines Completed 10/10/2024, 08/05/2024 Meningococcal B Vaccine Aged Out No l onger eligible based on patient's age to complete this topic Meningococcal Vaccine Aged Out No faby georgi eligible based on patient's age to complete this topic RSV Immunizations Under 20 Months Aged Out No longer eligible b ased on patient's age to complete this topic Procedures Procedure Name Priority Date/Time Associated Diagnosis Comments LIPID PANEL Routine 11/24/2024 8:48 AM KNOCKOUT MACHINE OPERATOR Mixed hyperlipidemia COMPREHENSIVE METABOLIC PANEL Routine 11/24/2024 8:48 AM KNOCKOUT MACHINE OPERATOR Mixed hyperlipidemia COLLECTION VENOUS BLOOD VENIPUNCTURE Routine 11/24/2024 8:35 AM KNOCKOUT MACHINE OPERATOR Mixed hyperlipidemia HEPATITIS C ANTIBODY Routine 08/19/2024 7:55 AM CDT Annual physical exam Establishing care with new doctor, encounter for General medical exam Encounter for hepatitis C screening test for low risk patient Drug therapy BONE DENSITY GENERIC (SCAN ORDER) 04/24/2024 MAMMOGRAM GENERIC (SCAN ORDER) 04/24/2024 from Last 3 Months or Most Recently Relevant to Health Maintenance Results * (ABNORMAL) COMPREHENSIVE METABOLIC PANEL (11/24/2024 8:48 AM KNOCKOUT MACHINE OPERATOR) SODIUM S/P/B 142 136 - 145 MMOL/L 11/24/2024 3:51 PM KNOCKOUT MACHINE OPERATOR [facility] POTASSIUM S/P/B 4.3 3.5 - 5.1 MMOL/L 11/24/2024 3:51 PM KNOCKOUT MACHINE OPERATOR [facility] CHLORIDE S/P/B 106 98 - 107 MMOL/L 11/24/2024 3:[address] [facility] CO2 27.5 21 - 32 MMOL/L 11/24/2024 3:51 PM KNOCKOUT MACHINE OPERATOR [facility] GLUCOSE 97 70 - 99 MG/DL 11/24/2024 3:[address] [facility] BUN 18 7 - 18 MG/DL 11/24/2024 3:51 PM KNOCKOUT MACHINE OPERATOR [facility] CREATININE S/P/B 0.79 0.55 - 1.02 MG/DL 11/24/2024 3:51 PM [facility] CALCIUM S/P/B 8.8 8.4 - 10.5 MG/DL 11/24/2024 3:[address] [facility] BILIRUBIN TOTAL S/P/B 0.2 0.2 - 1.0 MG/DL 11/24/2024 3:[address] [facility] ALKALINE PHOSPHATASE S/P/B 108 55 - 142 U/L 11/24/2024 3:[address] [facility] AST 17 15 - 37 U/L 11/24/2024 3:[address] [facility] ALT 57 14 - 59 U/L 11/24/2024 3:[address] [facility] TOTAL PROTEIN S/P/B 6.8 6.4 - 8.2 G/DL 11/24/2024 3:[address] [facility] ALBUMIN S/P/B 3.8 3.4 - 5.0 G/DL 11/24/2024 3:[address] [facility] ANION GAP 8.5 5 - 15 MMOL/L 11/24/2024 3:[address] [facility] Comment:REFERENCE RANGE NOT ESTABLISHED OSMOLALITY (CALC) 296 MOSM/KG 025 3:[address] [facility] Comment:REFERENCE RANGE NOT ESTABLISHED GFR ESTIMATE 82(L) >90 ML/MIN/1. 73 M2 11/24/2024 3:[address] [facility] GFR NOTES GFR REFERENCE S: 11/24/2024 3:[address] [facility] Comment: THE ESTIMATED GFR IS CALCULATED USING THE 2020 CKD-EPI EQUATION. THE FOLLOWING CATEGORIES FOR GRADING RENAL FUNCTION ARE RECOMMENDED BY THE INTERNATIONAL SOCIETY OF NEPHROLOGY (KDIGO 2012 CLINICAL PRACTICE GUIDELINE). G1,NORMAL OR HIGH: >89 ml/min/1.73 m2 G2,MILDLY DECREASED: 60-89 ml/min/1.73 m2 G3A,MILDLY TO MODERATELY DECREASED: 45-59 ml/min/1.73 m2 G3B,MODERATELY TO SEVERELY DECREASED: 30-44 ml/min/1.73 m2 G4,SEVERELY DECREASED: 15-29 ml/min/1.73 m2 G5,KIDNEY FAILURE: <15 ml/min/1.73 m2 11/24/2024 8:48 AM KNOCKOUT MACHINE OPERATOR Malvin Arechiga MD LABORATORY Final Result [facility] [address] [place] [address], * (ABNORMAL) LIPID PANEL (11/24/2024 8:48 AM KNOCKOUT MACHINE OPERATOR) CHOLESTEROL 189 <200 MG/DL 11/24/2024 3:51 PM KNOCKOUT MACHINE OPERATOR [facility] TRIGLYCERIDES 90 <150 MG/DL 11/24/2024 3:51 PM KNOCKOUT MACHINE OPERATOR [facility] HDL 56 >40 MG/DL 11/24/2024 3:51 PM KNOCKOUT MACHINE OPERATOR [facility] LDL-C 115(H) <100 MG/DL 11/24/2024 3:51 PM KNOCKOUT MACHINE OPERATOR [facility] VLDL CALCULATION 18 5 - 28 MG/DL 11/24/2024 3:51 PM KNOCKOUT MACHINE OPERATOR [facility] CHOL/HDL RATIO 3.4 0.0 - 4.0 11/24/2024 3:[address] [facility] LDL/HDL 2.1 0.41 - 2.13 11/24/2024 3:51 PM KNOCKOUT MACHINE OPERATOR [facility] NON HDL CHOLESTEROL 133 <140 MG/DL 11/24/2024 3:51 PM KNOCKOUT MACHINE OPERATOR [facility] 11/24/2024 8:48 AM KNOCKOUT MACHINE OPERATOR Malvin Arechiga MD LABORATORY Final Result [facility] [address] [place] [address], * HEPATITIS C ANTIBODY (08/19/2024 7:55 AM CDT) HEPATITIS C AB NON-REACTI VE NON-REACT GUERDA 08/19/2024 6:26 PM CDT [facility] Comment: ANTIBODIES TO HCV NOT DETECTED. DOES NOT EXCLUDE THE POSSIBILITY OF EXPOSURE TO HCV. 08/19/2024 7:55 AM CDT Malvin Arechiga MD LABORATORY Final Result [facility] [address] [place] [address], [id number] * BONE DENSITY GENERIC (SCAN ORDER) (04/24/2024) Anatomical Region Laterality Modality Other 04/24/2024 [facility] Scanned SCANNING Final Resu lt * MAMMOGRAM GENERIC (SCAN ORDER) (04/24/2024) Anatomical Region Laterality Modality Other 04/24/2024 [facility] Scanned SCANNING Final Resu lt from Last 3 Months or Most Recently Relevant to Health Maintenance Insurance [employer] Care Teams Test Case Developer Relationship Specialty Start Date End Date Malvin Arechiga MD [address] [facility] [address] [place] [id number] PCP - General 08/16/24
--- OUTSIDE RECORDS SUMMARY | 2024-12-14 08:17 | XMS_ITS | Referral Summary ---
Author Organization [facility] Address [address] [place] [address] Care Team Providers Care Sterile Preparation Technician Name Role Phone Brown Holden MD Primary Care Provider [phone] Source Comments [facility],non-[facility] Affiliates and Associated Physician Practices is amultiple site organization consisting of ambulatory clinics and hospital sitesin [place], [place], [place] and [place]. This disclosure is being madepursuant to the Care Everywhere program and may not contain all information available regarding this patient. Last updated 18.[facility] Allergies No known active allergies Medications * [...] 08/06/2019 8:05 PM CDT Plan of Treatment Not on file Care Teams Sterile Preparation Technician Relationship Specialty Start Date End Date Brown Holden MD [address] [place] [address] [address] [place], [place] [id number] PCP - General Internal Medicine 08/06/19
== END 2024-12-14 08:03 | disposition home or self-care (01) ==
PROVIDERS: PCP Internal Medicine; Visit Provider Urology
DX: N20.1 Calculus of ureter (principal)
CPT/HCPCS: 74018